=== PATIENT | female | born 1960 | race Caucasian/White ===

== ENCOUNTER 2018-01-13 22:01 | Emergency (ER) | payer OTHER ==
[~2018-01-13] VITALS: Ht 162.6 cm; Wt 54.4 kg
[2018-01-13] MEDS ORDERED: TRAMADOL 50 MG50 MG PO (23:52)
[2018-01-14 00:37] VITALS: BP 123/82
== END 2018-01-14 00:38 | disposition home or self-care (01) ==
LOC: ER 22:01
DX: S02.2XXA Fracture of nasal bones, initial encounter for closed fracture (principal); F10.129 Alcohol abuse with intoxication, unspecified; W01.198A Fall on same level from slipping, tripping and stumbling with subsequent striking against other object, initial encounter; Y92.89 Other specified places as the place of occurrence of the external cause; Y93.89 Activity, other specified; Y99.8 Other external cause status